=== PATIENT | female | born 1940 | race Caucasian/White ===

== ENCOUNTER 2017-11-29 10:56 | Emergency (ER) | payer MEDICARE, MEDICAID ==
[~2017-11-29] VITALS: Ht 175.3 cm; Wt 90.7 kg
--- NOTE | 2017-11-29 11:37 | ER.PDOC ---
General Chief Complaint: Cough/Congestion Stated Complaint: COUGH,CONGESTION,DIARREAH,HEADACHE Time seen by MD: 11:36 Source: patient Exam Limitations: no limitations History of Present Illness Initial Comments Cough, congestion and headache for 3 days Timing/Duration: gradual Severity: moderate Associated Symptoms: runny nose, cough, headache Prior symptoms/Treatment: Similar symptoms previous Allergies: Coded Allergies: ibuprofen (Verified Allergy, Unknown, Hives, 11/29/17) naproxen (Verified Allergy, Unknown, Shortness of Breath, 11/29/17) Constitutional: no symptoms reported EENTM: no symptoms reported Respiratory: no symptoms reported Cardiovascular: see HPI Gastrointestinal: see HPI All Other Systems: Reviewed and Negative Past Medical History Medical History: cardiac problems, diabetes, fibromyalgia, hypertension Surgical History: cardiac cath, stent LMP (females 10-50): postmenopause Social History Smoking: non-smoker Alcohol Use: none Drug Use: none Physical Exam General Appearance: alert, no distress Eye: pain on precuss of sinus Neck: nml inspection, supple Respiratory: no resp.distress, breath sounds nml Abdomen: non-tender, no organomegaly CVS: reg rate & rhythm, heart sounds nml Skin: color nml, no rash, warm/dry Extremities: non-tender, nml ROM, no pedal edema NEURO/PSYCH: oriented x 3, CN's nml as tested, motor nml, sensation nml, mood/ affect nml Results/Orders Results/Orders Laboratory Tests Test 11/29/17 11:33 Influenza Virus Type A Antibody NEGATIVE (NEG) Influenza Virus Type B Antibody NEGATIVE (NEG) EKG/XRAY/CT/US CT Comments: No acute intracranial abnormality. Acute sinusitis Departure Time of Disposition: 12:30 Disposition: 01 HOME, SELF-CARE Impression: Primary Impression: Acute sinusitis Qualified Codes: J01.90 - Acute sinusitis, unspecified Additional Impression: Acute URI Condition: Stable Referrals: ANAID DÍAZ PA-C (PCP) PRIMARY CARE PROVIDER Additional Instructions: Augmentin Tylenol Mucinex DM OTC as directed F/U with your PCP in 3-4 days Duration or Time Spent with Pa: 40 mins ARAM CHU MD Nov 29, 2017 11:37
--- NOTE | 2017-11-29 12:21 | DIREP ---
PROCEDURE:CT HEAD OR BRAIN W/O CONTRAST COMPARISON:None. INDICATIONS:headache TECHNIQUE:CT images were created without intravenous contrast. FINDINGS: VENTRICLES:The ventricles are normal in size and configuration. CEREBRUM:Small foci of diminished attenuation in the supratentorial white matter consistent with mild leukoaraiosis. CEREBELLUM:Negative. BRAINSTEM:Negative. BASAL CISTERNS:Negative. SKULL:Normal. SINUSES:Complete opacification of right ethmoid and right frontal sinuses. Bilateral maxillary antrostomies. Mucosal thickening in the left maxillary sinus. Moderate thickening of the bony fernandez of the maxillary sinus. Mucous retention cysts versus air-fluid levels in the sphenoid sinus. OTHER:None CONCLUSION: 1. No acute intracranial abnormality. 2. Acute on chronic paranasal sinus disease which may account for headache. 3. Mild chronic microvascular ischemic changes. Dictated by: Wade Nunez M.D. on 11/29/2017 at 12:17 PM
[2017-11-29 12:50] VITALS: BP 140/88
== END 2017-11-29 12:45 | disposition home or self-care (01) ==
LOC: ER 10:56
DX: J01.90 Acute sinusitis, unspecified (principal); E11.9 Type 2 diabetes mellitus without complications; I10 Essential (primary) hypertension; M79.7 Fibromyalgia; Z88.6 Allergy status to analgesic agent
CPT/HCPCS: 70450; 86710; 99285